=== PATIENT | female | born 1975 ===

== ENCOUNTER 2024-06-13 08:41 | Day surgery (SDC) | payer BC, OTHER ==
[2024-06-13] VITALS (12 sets, daily range): BP systolic 105–136; BP diastolic 67–80; PULSE 46–58; TEMP 97.8
[~2024-06-13] VITALS: Ht 167.6 cm; Wt 105.1 kg
[2024-06-13] MEDS ORDERED: 1/2 NS 1,000 ML IV SCH (09:45)
[2024-06-13 09:59] LABS: HEMOGLOBIN 12.5 g/dl (12.5-16.0); MEAN CELL VOLUME 89 fl (80.0-100.0); MEAN CORPUSCULAR HEMOGLOBIN 30 pg (27-31); MEAN CORPUSCULAR HGB CONC 34 g/dl (33.0-37.0); MEAN PLATELET VOLUME 11.3 fl (7.4-10.4); PLATELET COUNT 231 K/mm3 (130-400); RED BLOOD COUNT 4.15 M/mm3 (4.10-5.30); REDCELL DISTRIBUTION WIDTH-CV 12.8 % (11.5-14.5)
[2024-06-13] MEDS ORDERED: ALLEGRA 180MG180 MG PO (10:01)
[2024-06-13] MEDS ORDERED: COZAAR 50MG50 MG/TAB PO (10:01)
[2024-06-13] MEDS ORDERED: ZOLOFT 50MG50 MG PO (10:01)
[2024-06-13 10:05] LABS: PROTHROMBIN TIME 11.4 SECONDS (9.7-12.8)
[2024-06-13 10:08] LABS: PARTIAL THROMBOPLASTIN TIME 32.4 SECONDS (26.0-37.0)
[2024-06-13 10:17] LABS: CALCIUM 9.4 mg/dL (8.4-10.2); CREATININE, serum 0.72 mg/dL (0.57-1.11); POTASSIUM 4.2 mEq/L (3.5-4.5)
[2024-06-13] MEDS ORDERED: Nitroglycerin 100 MCG/ML (Cath Lab) 10 ML VIAL IA SCH (11:20)
[2024-06-13] MEDS ORDERED: Verapamil 2.5 MG/ML 2 ML VIAL IA SCH (11:21)
[2024-06-13] MEDS ORDERED: Heparin 1,000 UNITS/ML 10 ML Multi-Dose VIAL IV SCH (11:21)
--- NOTE | 2024-06-13 11:31 | NUR ---
See Merge report for procedural sedation/notes
[2024-06-13] MEDS ORDERED: fentaNYL 50 MCG/ML 2 ML VIAL IV SCH (11:42)
[2024-06-13] MEDS ORDERED: Midazolam 2 MG/2 ML VIAL IV SCH (11:42)
[2024-06-13] MEDS ORDERED: Iohexol 350 - 100 ML VIAL INCOR ONE (11:43)
[2024-06-13] MEDS ORDERED: NORVASC2.5 MG PO (11:55)
--- NOTE | 2024-06-13 15:53 | NUR ---
Pt ambulated to EU10 with a steady gait, accompanied by their . EKG done. IV started, labs drawn. Meds and HX reviewed with the pt. Consent for the procedure signed. Post procedure the pt came back to EU10. The right radial site assessed. The site was clean and dry. Offered the pt something to eat and drink. Accepted a water, but did not want anything to eat. Pt was bedrest for an hour. At the start of the 3rd hour recovering air was taken out of the band. 2 mls about every 15 mins. At the time of the first air pull the pt reported having numbness and swelling in their right hand. Once a few mls of air was released the pt reported the numbness was gone, but the swelling was still present. Dr. Flynn notified. Advised the pt to continue to elevate the hand, and to notify them if numbness and tingling came back. Dr. Flynn was okay to continue the discharge process. Once all the air was released the radial site remained clean and dry. The site was cleaned and a band-aid was applied. The deflated band was reapplied as a reminder to limit extremity use. Discharge education and information discussed with the pt. No questions at the time. The pts IV was dc'd and site wrapped with coban. The pt exited the unit by wheelchair accompanied by this nurse to their husbands car.
== END 2024-06-13 15:38 | disposition home or self-care (01) ==
LOC: COL.CAR 08:41
PROVIDERS: Internal Medicine Cardiovascular Disease
DX: R07.89 Other chest pain (principal); R94.39 Abnormal result of other cardiovascular function study; R06.09 Other forms of dyspnea
CPT/HCPCS: J1644; J2250; J3010; Q9967